=== PATIENT | male | born 1950 | race American Indian/Alaskan Native ===

== ENCOUNTER 2017-06-04 07:32 | Day surgery (SDC) | payer MEDICARE ==
[~2017-06-04 07:32] MED LIST: MARCAINE 0.25% INFILTRATI ONE; XYLOCAINE 1%/ EPI 1:100,000 INFILTRATI ONE
[2017-06-04] MEDS ORDERED: NACL BACTERIOSTATIC INFILTRATI ONE (07:50)
[2017-06-04] MEDS ORDERED: ANCEF/STERILE WATER 2 GM/20 ML IV NR (08:00)
[2017-06-04] MEDS ORDERED: DILAUDID ONE ×2 (08:09→11:29)
[2017-06-04] MEDS ORDERED: DIPRIVAN 10 MG/ML IV ONE (08:09)
[2017-06-04] MEDS ORDERED: XYLOCAINE MPF 2% ONE (08:11)
[2017-06-04 08:22] LABS: Hematocrit 45.9 % (35.5-45.6); Hemoglobin 15.5 gm/dl (11.8-15.2); Mean Corpuscular HGB Conc 34 % (32-34); Mean Corpuscular Hemoglobin 31 pg (28-32); Mean Corpuscular Volume 91 fl (84-94); Platelet Count 132 K/mm3 (140-440); Red Blood Count 5.02 M/mm3 (3.65-5.03); Red Cell Distribution Width 13.1 % (13.2-15.2); White Blood Count 2.5 K/mm3 (4.5-11.0)
[2017-06-04 08:25] LABS: INR 1.1 (0.87-1.13)
[2017-06-04 08:26] LABS: Partial Thromboplastin Time 27.5 Sec. (24.2-36.6)
[2017-06-04 08:27] LABS: Anion Gap 14 mmol/L; BUN/Creatinine Ratio 11.25; Blood Urea Nitrogen 9 mg/dL (9-20); Carbon Dioxide 29 mmol/L (22-30); Glucose 117 mg/dL (75-100); Potassium 4.3 mmol/L (3.6-5.0); Sodium 141 mmol/L (137-145)
--- NOTE | 2017-06-04 08:48 | Anesthesia Consultation ---
Anesthesia Consult and Med Hx Date of service: 06/04/17 - Airway Anesthetic Teeth Evaluation: Good ROM Head & Neck: Adequate Mental/Hyoid Distance: Adequate Mallampati Class: Class II Intubation Access Assessment: Probably Good - Pulmonary Exam CTA: Yes - Cardiac Exam Cardiac Exam: RRR - Pre-Operative Health Status ASA Pre-Surgery Classification: ASA2 Proposed Anesthetic Plan: General - Cardiovascular System Hx Hypertension: Yes - Endocrine Hx Non-Insulin Dependent Diabetes: Yes - Other Systems Hx Cancer: No
--- NOTE | 2017-06-04 08:48 | Anesthesia Day of Surgery ---
Anesthesia Day of Surgery - Day of Surgery Patient Examined: Yes Patient H&P Reviewed: Yes Patient is NPO: Yes Beta Blockers: Yes
[2017-06-04] MEDS ORDERED: PEPCID PO NR (09:00)
[2017-06-04] MEDS ORDERED: TORADOL ONE (09:00)
[2017-06-04] MEDS ORDERED: DECADRON ONE (09:00)
[2017-06-04] MEDS ORDERED: NACL 0.9% 1000 ML 1,000 ML IV SCH (09:00)
[2017-06-04] MEDS ORDERED: ZOFRAN ONE (09:00)
[2017-06-04] MEDS ORDERED: VERSED IV NR (09:00)
[2017-06-04 09:39] LABS: Basophils % (Manual) 0 % (0.0-1.8); Blastocytes % (Manual) 0 %
[2017-06-04] MEDS ORDERED: MARCAINE 0.25% INFILTRATI ONE (09:39)
[2017-06-04 09:40] LABS: Diff Status Complete; Platelet Estimate Consistent w Auto; RBC Morphology Normal
[2017-06-04] MEDS ORDERED: XYLOCAINE 1%/ EPI 1:100,000 INFILTRATI ONE (09:44)
[2017-06-04] MEDS ORDERED: NACL 0.9% IR ONE (09:45)
[2017-06-04] MEDS ORDERED: NORMODYNE IV ONE (10:01)
[2017-06-04] MEDS ORDERED: ROBINUL ONE (10:01)
[2017-06-04] MEDS ORDERED: BREVIBLOC IV ONE (10:01)
[2017-06-04] MEDS ORDERED: NACL 0.9% 1000 ML 1,000 ML ONE (10:40)
--- NOTE | 2017-06-04 10:50 | Short Stay Summary ---
Short Stay Documentation - Allergies and Medications Current Medications: Allergies No Known Allergies Allergy (Unverified 06/03/17 08:07) Home Medications Medication Instructions Recorded Confirmed Last Taken Type Amlodipine Besylate/Benazepril 1 each PO QDAY 06/04/17 06/04/17 06/03/17 08:00 History [Lotrel 10-40 mg] Atenolol [Tenormin] 25 mg PO DAILY 06/04/17 06/04/17 06/03/17 08:00 History Glimepiride [Amaryl] 1 mg PO QDAY 06/04/17 06/04/17 06/03/17 08:00 History Lovastatin [Altoprev] 20 mg PO 06/04/17 06/03/17 08:00 History Multivitamin Tab [Multiple Vitamin 1 tab PO QDAY 06/04/17 06/04/17 06/03/17 08: 00 History TAB (Theragran)] Sitagliptin Phos/Metformin HCl 1 tab PO QDAY 06/04/17 06/04/17 06/03/17 08:00 History [Janumet XR 50-1,000 mg] Tamsulosin [Flomax] 0.4 mg PO QDAY 06/04/17 06/04/17 Unknown History traMADol [Ultram 50 MG tab] 50 mg PO Q6HR PRN 06/04/17 06/04/17 06/03/17 08:00 History Active Medications Cefazolin Sodium (Ancef/Sterile Water 2 Gm/20 Ml) 2 gm IV PREOP NR Stop: 06/04/17 12:00 Famotidine (Pepcid) 20 mg PO PREOP NR Stop: 06/04/17 15:00 Last Admin: 06/04/17 08:52 Dose: 20 mg Sodium Chloride (Nacl 0.9% 1000 Ml) 1,000 mls @ 100 mls/hr IV DIRECT LORNA Last Admin: 06/04/17 08:05 Dose: 100 mls/hr Midazolam HCl (Versed) 2 mg IV ONCE NR Stop: 06/04/17 15:00 Last Admin: 06/04/17 08:53 Dose: 2 mg Short Stay Discharge Plan Activity: advance as tolerated Weight Bearing Status: Weight Bear as Tolerated Diet: regular Wound: keep clean and dry, per your surgeon's advice Durable Medical Equipment Needed Upon Discharge: Cane Additional Instructions: follow DC instruction sheets. Follow up with: ALEJANDRA MCMILLAN MD [Primary Care Provider] - 7 Days CAMRYN STEPHENS MD [Staff Physician] - 10 Days
--- NOTE | 2017-06-04 10:57 | Post Anesthesia Evaluation ---
- Post Anesthesia Evaluation Patient Participated: Yes Airway Patent: Yes Stable Respiratory Function: Yes Nausea/Vomiting: No Temp > 96.8F: Yes Pain Manageable: Yes Adequeate Hydration: Yes
[2017-06-04] MEDS ORDERED: PERCOCET 5/325 PO PRN (11:21)
[2017-06-04] MEDS: DILAUDID IV PRN ×2 (11:30→11:40)
[2017-06-04 12:45] LABS: Basophils Body Fluid 0 %; Eosinophils Body Fluid 0 %
[2017-06-04] MEDS ORDERED: NORCO 5/325 PO ONE (13:42)
--- NOTE | 2017-06-04 13:59 | Operative Report ---
PREOPERATIVE DIAGNOSIS: Meniscus tear of the right knee posterior horn. POSTOPERATIVE DIAGNOSES: 1. 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 2. Synovial hypertrophy and synovial proliferation, right knee joint. Loose floating pieces of the cartilage tissue, right knee joint. SURGEON: Vinayak Davis M.D. ANESTHESIA: General anesthesia. COMPLICATIONS: None. BLOOD LOSS: Minimal. PROCEDURES PERFORMED: 1. Right knee arthroscopy. 2. Arthroscopic partial medial meniscectomy, arthroscopic partial synovectomy, arthroscopic debridement and chondroplasty. BRIEF HISTORY: The patient had a painful right knee, failed conservative treatment, opted to undergo surgical intervention. Risk and benefit discussed, informed consent obtained, brought to the hospital for the above procedure. DETAILS OF THE OPERATIVE REPORT: The patient was taken to the operating room, smooth endotracheal anesthesia, all the bony prominences carefully padded, placed supine on the operating table. Thigh tourniquet placed. Right knee and right lower extremity prepped and draped in sterile fashion. Portal sites infiltrated with 1% lidocaine with epinephrine. Leg elevated, tourniquet inflated to 300 mmHg after the timeout was done and antibiotic was given 2 grams Ancef. High lateral portal sites infiltrated with 1% lidocaine with epinephrine. High lateral portal was created, lateral portal arthroscope introduced. Diagnostic arthroscopy was performed. Findings noted below. Lateral gutter shows loose floating cartilage pieces and synovial tissue, patella shows grade 2+ changes about 80-90%, grade 3 about 10-20%. Trochlea grade 2+ changes about 70%, grade 3 about 15-20% ____ synovial hypertrophy and synovial proliferation. Fat pad normal. Medial meniscus complex tear pattern of the posterior horn injection of posterior horn of medial meniscus with multiple flaps tucked underneath the post-tibia. PCL intact, ACL chronic partial tear stable. Lateral femoral condyle pristine, lateral tibial plateau, grade 2+ osteoarthritic changes about 80-90%. Lateral meniscus pristine with minimal fraying of the edges as such. Under direct visualization, medial portal was created using synovial resector and biters and 3 partial medial meniscectomy was performed, stable meniscal rim was achieved. All the torn flap and horizontal pieces from torn flap was removed ____ under the proximal tibia was delivered out and suctioned out and shaved off as well. Stable meniscal rim was achieved. The patient had a loose floating pieces of cartilage tissue and synovial tissue and the meniscus from the previous torn and it took us additional time to find that loose floating pieces that acted as loose body and finally we were able to get all that and suctioned out. Pictures were taken. Fluid was suctioned out. Next, debridement, chondroplasty, and partial synovectomy was also performed. Fluid was suctioned out and then portal sites closed with 3-0 nylon interrupted sutures and portal sites infiltrated with 0.25% plain Marcaine, 3 mL in each portal and ____ mL in the joint. The patient tolerated the procedure well. Dressing was done with Xeroform, 4 x 4s, ABD, cast padding, Ramses wrap. The patient tolerated the procedure well, shifted to recovery room in stable condition. Sponge and needle count was correct. JOB# [id number] KIRSTEN/WESTON
[2017-06-04 18:09] VITALS: BP 135/92
== END 2017-06-04 13:17 | disposition home or self-care (01) ==
LOC: OR 07:32
PROVIDERS: ATTEND Orthopaedic Surgery
DX: S83.231A Complex tear of medial meniscus, current injury, right knee, initial encounter (principal); M17.11 Unilateral primary osteoarthritis, right knee; M67.261 Synovial hypertrophy, not elsewhere classified, right lower leg; M25.861 Other specified joint disorders, right knee; I10 Essential (primary) hypertension; E11.9 Type 2 diabetes mellitus without complications; X58.XXXA Exposure to other specified factors, initial encounter; Y93.89 Activity, other specified; Y92.89 Other specified places as the place of occurrence of the external cause; Y99.8 Other external cause status
CPT/HCPCS: 29881; 36415; 80048; 82962; 85007; 85025; 85048; 85610; 85730; 89051; A4217; J0690; J1100; J1170; J1885; J2250; J2405; J2704; J7030